=== PATIENT | female | born 1985 | race Caucasian/White ===

== ENCOUNTER 2018-07-15 15:21 | Emergency (ER) | payer SELFPAY ==
[~2018-07-15] VITALS: Ht 160 cm; Wt 68.2 kg
[2018-07-15 15:40] VITALS: Ht 160 cm; Wt 68.2 kg
[2018-07-15] MEDS ORDERED: PSEUDO-GEST60 MG PO (16:39)
[2018-07-15] MEDS ORDERED: PROMETHAZINE W473 ML PO (16:39)
[2018-07-15] MEDS ORDERED: OMNICEF300 MG PO (16:39)
[2018-07-15 17:00] VITALS: BP 124/74
== END 2018-07-15 16:54 | disposition home or self-care (01) ==
LOC: D.ER 15:21
DX: O26.892 Other specified pregnancy related conditions, second trimester (principal); Z3A.17 17 weeks gestation of pregnancy; M79.18 Myalgia, other site; R05 Cough; F17.200 Nicotine dependence, unspecified, uncomplicated